=== PATIENT | female | born 1950 | race Caucasian/White ===

== ENCOUNTER 2017-09-03 20:55 | Emergency (ER) | payer MEDICARE, BC ==
--- NOTE | 2017-09-03 21:36 | RAD ---
RIGHT THUMB THREE VIEWS: 09/03/17 HISTORY: Injury. Pain. COMPARISON: None. FINDINGS: Joint space is preserved. No fracture. IMPRESSION: No fracture. POS: [facility]
--- NOTE | 2017-09-03 21:37 | RAD ---
RIGHT WRIST THREE VIEWS: 09/03/17 HISTORY: Pain. COMPARISON: 02/11/11. FINDINGS: uncomplicated distal radius internal fixation plate. No acute fractures. Mild degenerative changes of the radiocarpal joint space. Chronic changes to the ulnar styloid. IMPRESSION: 1. Uncomplicated internal fixation hardware. 2. No acute fracture. POS: [facility]
== END 2017-09-03 22:00 | disposition home or self-care (01) ==
LOC: SCSER 20:55
DX: S63.501A Unspecified sprain of right wrist, initial encounter (principal); S63.601A Unspecified sprain of right thumb, initial encounter; X50.1XXA Overexertion from prolonged static or awkward postures, initial encounter

== ENCOUNTER 2018-02-24 20:42 | Emergency (ER) | payer MEDICARE, BC | END 2018-02-24 21:05 | disposition left against medical advice (07) | LOC: ERS 20:42 | DX: Z53.21 Procedure and treatment not carried out due to patient leaving prior to being seen by health care provider (principal) ==

== ENCOUNTER 2018-02-24 21:16 | Emergency (ER) | payer MEDICARE, BC ==
[2018-02-24] MEDS ORDERED: Ondansetron HCl/PF 4 MG/2 ML Vial ONE (21:57)
[2018-02-24] MEDS ORDERED: Morphine 4 MG/ML Carpuject ONE (21:57)
[2018-02-24 22:21] LABS: Band 4 % (5-11); Eosinophils 1 % (0-10); Hemoglobin 14.8 g/dL (12.0-16.0); Lymphocytes 17 % (21-51); MDiff Complete? YES; Mean Corpuscular HGB CONC 34.8 g/dL (32.0-36.0); Mean Corpuscular Hemoglobin 30.7 pg (27.0-31.0); Mean Corpuscular Volume 88.2 fL (78.0-98.0); Mean Platelet Volume 7.4 fL (7.4-10.4); Monocytes 4 % (0-10); Neutrophil 72 % (42-75); PLT Morphology Comment Appears Adequate; Platelet Count 297 thou/uL (130-400); RBC Distribution Width 10.7 % (11.5-14.5); Reactive Lymphocytes 1 % (0-10); White Blood Cell (WBC) Count 9.4 thou/uL (4.8-10.8)
[2018-02-24 22:25] LABS: ALT (SGPT) 32 U/L (8-55); AST (SGOT) 21 U/L (5-34); Alkaline Phosphatase 109 U/L (40-150); Anion Gap 13 mmol/L (10-20); BUN (Urea Nitrogen) 7 mg/dL (9.8-20.1); Bilirubin, Total 0.6 mg/dL (0.2-1.2); CK (CPK) 65 U/L (29-168); Calc. Creatinine Clearance 0 mL/min (70-130); Calcium 8.8 mg/dL (7.8-10.44); Carbon Dioxide 22 mmol/L (23-31); Chloride 106 mmol/L (98-107); Estimated GFR-MDRD 82; Globulin 2.8 g/dL (2.4-3.5); Glucose 108 mg/dL (80-115); Lipase 18 U/L (8-78); Potassium 3.9 mmol/L (3.5-5.1); Protein, Total 6.8 g/dL (6.0-8.3); Sodium 137 mmol/L (136-145)
[2018-02-24 22:26] LABS: CKMB 1.1 ng/mL (0-6.6); Troponin I Less than 0.010 ng/mL (< 0.028)
[2018-02-24] MEDS ORDERED: Ketorolac Tromethamine 30 MG/ML VIAL ONE ×2 (23:04→23:47)
[2018-02-24] MEDS ORDERED: Diazepam 5 MG TAB ONE (23:47)
== END 2018-02-25 01:28 | disposition home or self-care (01) ==
LOC: SCSER 21:16
DX: R10.9 Unspecified abdominal pain (principal); M54.6 Pain in thoracic spine; F43.10 Post-traumatic stress disorder, unspecified
CPT/HCPCS: 80053; 82553; 83690; 84484; 85025; 93005; 96365; 96366; 96375; 96376; J1885; J2270; J2405

== ENCOUNTER 2018-03-01 09:37 | Day surgery (SDC) | payer MEDICARE, BC ==
[2018-03-01] MEDS ORDERED: PHENYLEPHRINE-NS 100 MCG/ML 10 ML SYRINGE ONE (13:16)
[2018-03-01] MEDS ORDERED: Glycopyrrolate 0.2 MG/ML 5 ML SYRINGE ONE (13:16)
[2018-03-01] MEDS ORDERED: Lidocaine 1% PF 5 ML VIAL ONE (13:16)
[2018-03-01] MEDS ORDERED: PROPOFOL 200 MG/20 ML VIAL ONE (13:16)
[2018-03-01] MEDS ORDERED: Dexamethasone 20 MG/5 ML VIAL ONE (13:16)
[2018-03-01] MEDS ORDERED: Metoclopramide HCl 10 MG/2 ML VIAL ONE (13:16)
[2018-03-01] MEDS ORDERED: diphenhydrAMINE 50 MG/ML VIAL ONE (13:16)
[2018-03-01] MEDS ORDERED: Ondansetron HCl/PF 4 MG/2 ML Vial ONE (13:29)
[2018-03-01 13:45] LABS: #Eosinphils 0.3 thou/uL (0.0-0.7); #Lymphocytes 1.6 thou/uL (1.20-3.40); #Monocytes 0.6 thou/uL (0.11-0.59); #Neutrophils 4.5 thou/uL (1.40-6.50); %Basophils 0.3 % (0.0-1.0); %Eosinophils 4.7 % (0.0-10.0); %Lymphocytes 22.8 % (21.0-51.0); %Monocytes 8.7 % (0.0-10.0); %Neutrophils 63.4 % (42.0-75.0); Hemoglobin 14.2 g/dL (12.0-16.0); Mean Corpuscular HGB CONC 33.9 g/dL (32.0-36.0); Mean Corpuscular Hemoglobin 32.4 pg (27.0-31.0); Mean Corpuscular Volume 95.5 fL (78.0-98.0); Mean Platelet Volume 7.1 fL (7.4-10.4); Platelet Count 312 thou/uL (130-400); RBC Distribution Width 11.2 % (11.5-14.5)
[2018-03-01 13:54] LABS: ALT (SGPT) 67 U/L (8-55); AST (SGOT) 19 U/L (5-34); Albumin 3.7 g/dL (3.4-4.8); Alkaline Phosphatase 182 U/L (40-150); Anion Gap 15 mmol/L (10-20); BUN (Urea Nitrogen) 9 mg/dL (9.8-20.1); Bilirubin, Total 1.4 mg/dL (0.2-1.2); Calc. Creatinine Clearance 0 mL/min (70-130); Calcium 9.3 mg/dL (7.8-10.44); Carbon Dioxide 22 mmol/L (23-31); Chloride 104 mmol/L (98-107); Estimated GFR-MDRD 77; Globulin 3.3 g/dL (2.4-3.5); Glucose 83 mg/dL (80-115); Lipase 16 U/L (8-78); Potassium 4.4 mmol/L (3.5-5.1); Sodium 137 mmol/L (136-145)
[2018-03-01] MEDS ORDERED: Levofloxacin 500 mg/D5W 100 ml Premix Bag ONE (15:03)
[2018-03-01] MEDS ORDERED: Ketorolac Tromethamine 30 MG/ML VIAL ONE ×2 (15:10→21:26)
--- NOTE | 2018-03-01 15:19 | HP ---
HISTORY OF PRESENT ILLNESS: Roxanna Butler is a 67-year-old female, , has had intermittent biliar y symptoms for the past 2 years. One week ago, she experienced acute onset of right flank pain, righ t upper quadrant pain, nausea. She presented to the emergency room at [facility], but the w ait was too long and she went to [facility] at [facility] 5 days ago, was seen, had labo ratories and imaging not performed and she was sent home. She was seen by Dr. Abhi Dotson and CA T scan of abdomen and pelvis obtained revealing gallstones, acute cholecystitis and Dr. White called Dr. Musa who is vocational training instructor, who called the patient last night and suggested she come to the emergency room. The patient reports to the emergency room with slightly elevated bilirubin of 1.4, labs other lino normal. She feels somewhat better today. ALLERGIES: CODEINE causes pruritus. She tolerates Ultram well. Has never taken hydrocodone. SOCIAL HISTORY: Tobacco none. Alcohol 2-3 wine each night. MEDICATIONS: Occasional Zantac. PAST SURGICAL HISTORY: Right wrist surgery x2. Oral surgery as a child. PAST MEDICAL HISTORY: Noncontributory. She has never had a colonoscopy. She has never had chest pa in. She has never had an occasion to have a cardiac stress test. She is employed in [employer] with her . PHYSICAL EXAMINATION: VITAL SIGNS: Heart rate 80, blood pressure 120/74, respiratory rate 20. HEENT: Sclerae nonicteric. Skin nonjaundiced. LUNGS: Clear to auscultation. CARDIAC: Regular rate and rhythm without murmur or gallop. ABDOMEN: Tenderness in right upper quadrant with mild guarding. EXTREMITIES: Unremarkable. No ankle edema. Good palpable pulses. No lymphadenopathy. LABORATORY DATA: White count 7, hemoglobin 14. Comprehensive metabolic profile normal except for b ilirubin 1.4. Lipase is 16. ASSESSMENT AND PLAN: Cholecystitis, cholelithiasis. PLAN: Laparoscopic video cholecystectomy. Risk of infection, bleeding, visceral and biliary injury discussed, she consents.
[2018-03-01] MEDS ORDERED: Acetaminophen 1,000 MG in Premix Bag 1 BAG IVPB ONE (15:30)
[2018-03-01] MEDS ORDERED: Scopolamine 1.5 mg/72 hour Patch TOP SCH (15:30)
[2018-03-01] MEDS ORDERED: Scopolamine 1.5 mg/72 hour Patch ONE (16:34)
[2018-03-01] MEDS ORDERED: Iothalamate Meglumine 60% 50 ML VIAL FS ONE (19:15)
[2018-03-01] MEDS ORDERED: Bupivacaine HCl 0.5%/Epinephrine 1:200,000/PF 30 ml Vial ONE (19:15)
[2018-03-01] MEDS ORDERED: Fentanyl 250 MCG/5 ML VIAL ONE (19:24)
--- NOTE | 2018-03-01 20:47 | RAD ---
INTRAOPERATIVE CHOLANGIOGRAM 03/01/18 HISTORY: Cholecystectomy. COMPARISON: None. FINDINGS: Intraoperative cholangiogram is performed. Two images demonstrate canalization of the cystic duct rem nant. Contrast opacifies a normal appearing intra hepatic biliary system. There is mild tapering of t he distal common bile duct without associated high grade obstruction. No associated dilatation of the common bile duct proximal to this long segment of smooth tapering. Significance of this tapering is uncertain. Contrast opacifies the duodenum. IMPRESSION: Long segment of smooth tapering with mild narrowing of the distal common bile duct of uncertain signi ficance. Contrast does pass beyond this tapering and opacifies the small bowel loops. The visualized common bile duct and intrahepatic biliary system does not appear to be distended. POS: [facility]
--- NOTE | 2018-03-02 04:52 | OP ---
DATE OF PROCEDURE: 03/01/2018 PREOPERATIVE DIAGNOSIS: Acute cholecystitis, cholelithiasis. POSTOPERATIVE DIAGNOSIS: Acute cholecystitis, cholelithiasis. PROCEDURE: Laparoscopic video cholecystectomy, normal intraoperative cholangiogram, fluoroscopy less than one minute. SURGEON: Dr. Garo Roth. ANESTHESIA: General. Local 0.5% Marcaine with epinephrine of 30 mL. PROCEDURE IN DETAIL: The patient was taken to the operating room where under general anesthesia, abd omen was prepared with ChloraPrep, draped in routine fashion. Local anesthetic infiltrated into the skin and subcutaneous tissue at each port site. Infraumbilical incision was made and pneumoperitoneu m to 15 mmHg obtained with the Veress needle, replacing it with a 5 port and video laparoscope insert ed. Right subxiphoid incision was made and 11 port placed. Right subcostal incision made mid clavic ular anterior axillary lines and 5 ports placed. Liver appeared to be normal. Gallbladder was tight ly distended, hydrops the gallbladder. The fundus was grasped. I had to make an opening in the gall bladder to decompress the contents to enable grasping the infundibulum which was impacted with a ston e. There were multiple stones into the gallbladder ____ grasped. Careful dissection carried out, ta nery out edematous thick wall chronic inflammatory tissue, identifying the cystic artery and duct obt aining a critical view. Cystic artery double clipped proximally, divided. Cystic ducts then clipped on the gallbladder side. Opening made in the cystic duct, cholangiocath inserted and cholangiogram was obtained using fluoroscopy, revealed free flow of contrast into the duodenum without filling defe cts and normal caliber, small common hepatic, common bile, left and right hepatic ducts. Cholangioca th removed. Cystic duct stump doubly clipped, divided, and gallbladder dissected free obtaining good hemostasis prior to division of final peritoneal attachments. In the gallbladder, multiple stones r emoved and submitted to Pathology. There were multiple large black pigmented hard stones. There wer e other cholesterol fragmenting stones. Contents removed. Liver bed irrigated. Irrigant evacuated. Good hemostasis obtained with the cautery. Good hemostasis ensured. Pneumoperitoneum and irrigant evacuated. All this was removed and subxiphoid fascia approximated with [id number] sutures of 0 Vicryl ____ needles. All incisions were irrigated. Skin approximated with interrupted subdermal 4 -0 Monocryl and DermaGlue applied.
--- NOTE | 2018-03-05 11:48 | EKG ---
Test Reason : Blood Pressure : / mmHG Vent. Rate : 084 BPM Atrial Rate : 084 BPM P-R Int : 152 ms QRS Dur : 084 ms QT Int : 390 ms P-R-T Axes : 010 -52 016 degrees QTc Int : 460 ms Normal sinus rhythm Left anterior fascicular block Abnormal ECG Confirmed by EVA BARCLAY DO ([id number]), photographic editor SKIP MCBRIDE ([id number]) on 03/05/2018 11:48:14 AM Referred By: Confirmed By:EVA BARCLAY DO
== END 2018-03-01 22:05 | disposition home or self-care (01) ==
LOC: ERS 09:37 → SDC/OP 18:34
PROVIDERS: ATTEND Specialist
PROC: 0FT44ZZ Resection of Gallbladder, Percutaneous Endoscopic Approach (ICD-10-PCS; principal; 2018-03-01)
PROC: BF101ZZ Fluoroscopy of Bile Ducts using Low Osmolar Contrast (ICD-10-PCS; 2018-03-01)
DX: K80.12 Calculus of gallbladder with acute and chronic cholecystitis without obstruction (principal); Z88.5 Allergy status to narcotic agent
CPT/HCPCS: 47532; 47563; 80053; 83690; 85025; 88304; 93005; 96374; J1610; J0131; J0670; J1100; J1200; J1885; J1956; J2001; J2270; J2405; J2704; J2765; J3010; Q9961

== ENCOUNTER 2018-09-20 08:30 | Outpatient (CLI) | payer MEDICARE, BC ==
--- NOTE | 2018-09-20 09:30 | BD ---
BONE DENSITOMETRY USING DEXA: Date: 09/20/18 HISTORY: Postmenopausal screening for osteoporosis. FINDINGS: Lumbar Spine: BMD (g/cm2) L1 0.897 T-Score: -0.8 Z-Score: 0.8 L2 0.949 T-Score: -0.8 Z-Score: 1.1 L3 0.982 T-Score: -0.9 Z-Score: 1.0 L4 1.070 T-Score: 0.1 Z-Score: 2.1 L1-L4 0.980 T-Score: -0.6 Z-Score: 1.3 Femoral Neck: 0.640 T-Score: -1.9 Z-Score: -0.3 Total Femur: 0.874 T-Score: -0.6 Z-Score: 0.8 The 10 year fracture risk for a major osteoporotic fracture is 17% and for a hip fracture is 2.4%. IMPRESSION: Osteopenia. POS: [facility]
== END 2018-09-20 08:31 | disposition home or self-care (01) ==
LOC: BICMAMMO 08:30
PROVIDERS: ATTEND Family Medicine
DX: Z12.31 Encounter for screening mammogram for malignant neoplasm of breast (principal); Z13.820 Encounter for screening for osteoporosis; Z78.0 Asymptomatic menopausal state; M85.859 Other specified disorders of bone density and structure, unspecified thigh; Z80.3 Family history of malignant neoplasm of breast; Z80.8 Family history of malignant neoplasm of other organs or systems
CPT/HCPCS: 77063; 77067; 77080

== ENCOUNTER 2020-09-10 15:07 | Outpatient (CLI) | payer MEDICARE, BC ==
--- NOTE | 2020-09-10 15:53 | RAD ---
Comparison: Chest one view Left RIBS 3 views HISTORY: Fall. Left rib pain. FINDINGS: Chest one view: Moderate hiatal hernia. Normal cardiac silhouette. Atherosclerosis aorta. C hronic changes of the lung parenchyma, without consolidation or mass. No pneumothorax. No acute osseous abnormalities Left rib series: No fracture, cortical irregularity or periosteal reaction. IMPRESSION: 1. No acute cardiac or point process 2. Moderate hiatal hernia 3. Atherosclerosis 4. No evidence of a left rib fracture.
== END 2020-09-10 15:08 | disposition home or self-care (01) ==
LOC: BICRAD 15:07
PROVIDERS: ATTEND Physician Assistant
DX: R07.81 Pleurodynia (principal); K44.9 Diaphragmatic hernia without obstruction or gangrene; I70.90 Unspecified atherosclerosis

== ENCOUNTER 2020-12-17 14:06 | Day surgery (SDC) | payer MEDICARE, BC ==
[~2020-12-17 14:06] MED LIST: Iopamidol-370 76% 500 ML 1 ML ONE
[2020-12-17] MEDS ORDERED: Ondansetron PF 4 MG/2 ML Vial ONE ×2 (14:38→18:45)
[2020-12-17] MEDS ORDERED: Piperacillin/Tazobactam 3.375 GM VIAL ONE (16:48)
[2020-12-17 16:52] LABS: ALT (SGPT) 28 U/L (8-55); AST (SGOT) 19 U/L (5-34); Albumin 3.9 g/dL (3.4-4.8); Alkaline Phosphatase 101 U/L (40-110); Anion Gap 13 mmol/L (10-20); BUN (Urea Nitrogen) 10 mg/dL (9.8-20.1); Bilirubin, Total 2.1 mg/dL (0.2-1.2); Calc. Creatinine Clearance 0 mL/min (70-130); Calcium 9.4 mg/dL (7.8-10.44); Carbon Dioxide 25 mmol/L (23-31); Chloride 101 mmol/L (98-107); Globulin 3.2 g/dL (2.4-3.5); Glucose 111 mg/dL (80-115); Lipase 14 U/L (8-78); Protein, Total 7.1 g/dL (5.8-8.1); Sodium 135 mmol/L (136-145)
[2020-12-17 16:59] LABS: #Basophils 0.1 thou/uL (0.0-0.2); #Eosinphils 0.1 thou/uL (0.0-0.7); #Lymphocytes 2.5 thou/uL (1.20-3.40); #Monocytes 0.7 thou/uL (0.11-0.59); %Basophils 0.9 % (0.0-1.0); %Eosinophils 0.7 % (0.0-10.0); %Lymphocytes 20.1 % (21.0-51.0); %Neutrophils 72.3 % (42.0-75.0); Mean Corpuscular HGB CONC 32.9 g/dL (32.0-36.0); Mean Corpuscular Hemoglobin 32.3 pg (27.0-31.0); Mean Corpuscular Volume 98.1 fL (78.0-98.0); Mean Platelet Volume 7.1 fL (7.4-10.4); Platelet Count 251 thou/uL (130-400); RBC Distribution Width 11.4 % (11.5-14.5); Red Blood Cell (RBC) Count 4.63 mill/uL (4.20-5.40); White Blood Cell (WBC) Count 12.4 thou/uL (4.8-10.8)
[2020-12-17 17:56] LABS: SARS-CoV-2 NAA Rapid Test Not Detected (NotDetected)
[2020-12-17] MEDS ORDERED: Lidocaine 1% w/Epinephrine 1:100K 20 ML VIAL ONE (18:12)
[2020-12-17] MEDS ORDERED: Bupivacaine 0.25% HCL 30 ML VIAL ONE (18:12)
[2020-12-17 18:22] LABS: Bacteria/HPF None Seen HPF (None Seen); Bilirubin Negative (Negative); Blood, Urine 1+ (Negative); Clarity Clear (Clear); Glucose, Urine (Dipstick) Normal (Negative); Ketone, Urine Trace mg/dL (Negative); Leukocyte 75 Leu/uL (Negative); Nitrite Negative (Negative); Protein, Urine (Dipstick) Negative (Neg-Trace); RBC/HPF 0-3 HPF (0-3); Specific Gravity, Urine 1.045 (1.002-1.036); Squamous Epithelial 0-3 HPF (0-3); Urobilinogen Normal mg/dL (Less than 2); pH, Urine 6.5 (5.0-9.0)
[2020-12-17] MEDS ORDERED: Fentanyl 100 MCG/2 ML VIAL ONE (18:27)
[2020-12-17] MEDS ORDERED: Succinylcholine 200 MG/10 ml SYRINGE FS ONE (18:45)
[2020-12-17] MEDS ORDERED: Rocuronium Bromide 10 MG/ML (10ML VIAL) ONE (18:45)
[2020-12-17] MEDS ORDERED: Glycopyrrolate 0.2 MG/ML 5 ML SYRINGE ONE (18:45)
[2020-12-17] MEDS ORDERED: Lidocaine 1% PF 5 ML VIAL ONE (18:45)
[2020-12-17] MEDS ORDERED: Ketorolac Tromethamine 30 MG/ML VIAL ONE (18:45)
[2020-12-17] MEDS ORDERED: PROPOFOL 200 MG/20 ML VIAL ONE (18:45)
[2020-12-17] MEDS ORDERED: Dexamethasone 20 MG/5 ML VIAL ONE (18:45)
[2020-12-17] MEDS ORDERED: Promethazine HCl 25 MG/ML VIAL IM PRN (19:46)
[2020-12-17] MEDS ORDERED: Promethazine HCl 25 MG/ML VIAL SLOW IVP PRN (19:46)
[2020-12-17] MEDS ORDERED: Ondansetron HCl/PF 4 MG/2 ML Vial IVP PRN (19:46)
[2020-12-17] MEDS ORDERED: Acetaminophen 325 MG TAB ONE (20:07)
[2020-12-17] MEDS ORDERED: Ondansetron ODT 8 MG TAB ONE (21:03)
== END 2020-12-17 21:12 | disposition home or self-care (01) ==
LOC: ERS 14:06 → SDC/OP 18:07
PROVIDERS: ATTEND Surgery
PROC: 0DTJ4ZZ Resection of Appendix, Percutaneous Endoscopic Approach (ICD-10-PCS; principal; 2020-12-17)
DX: K35.80 Unspecified acute appendicitis (principal); K44.9 Diaphragmatic hernia without obstruction or gangrene; K57.30 Diverticulosis of large intestine without perforation or abscess without bleeding; Z88.5 Allergy status to narcotic agent; Z88.0 Allergy status to penicillin; Z91.040 Latex allergy status
CPT/HCPCS: 0240U; 44970; 74177; 76830; 76856; 80053; 83690; 85025; 81003; 81015; 88304; 96365; J1100; J1885; J2405; J2543; J2704; J3010; Q0162; Q9967; S0020

== ENCOUNTER 2022-06-23 10:40 | Outpatient (CLI) | payer MEDICARE, BC | END 2022-06-23 10:41 | disposition home or self-care (01) | LOC: BICMAMMO 10:40 | PROVIDERS: ATTEND Family Medicine | DX: Z12.31 Encounter for screening mammogram for malignant neoplasm of breast (principal); N60.22 Fibroadenosis of left breast; N60.21 Fibroadenosis of right breast; Z80.3 Family history of malignant neoplasm of breast | CPT/HCPCS: 77063; 77067 ==

== ENCOUNTER 2025-05-24 11:29 | Outpatient (CLI) | payer MEDICARE, BC | END 2025-05-24 11:30 | disposition home or self-care (01) | LOC: BICMAMMO 11:29 | DX: Z12.31 Encounter for screening mammogram for malignant neoplasm of breast (principal); Z78.0 Asymptomatic menopausal state; M85.851 Other specified disorders of bone density and structure, right thigh; M85.852 Other specified disorders of bone density and structure, left thigh; Z80.3 Family history of malignant neoplasm of breast | CPT/HCPCS: 77063; 77067; 77080 ==